=== PATIENT | male | born 1965 | race Caucasian/White ===

== ENCOUNTER 2020-09-03 17:28 | Emergency (ER) | payer OTHER ==
[~2020-09-03 17:28] MED LIST: ACETAMINOPHEN500 M1 PO; ASPIRIN CHEWABL81 MG PO; CYCLOBENZAPRINE10 MG PO; FLEXERIL10 MG PO; IBUPROFEN800 MG PO; MEDROL 4MG DOSEP4 MG PO; MOTRIN600 MG PO; MYLICON80 MG PO; NORCO 5-325 TA1 EACH PO; PERCOCET 5-3251 EACH PO; PROTONIX 40MG T40 MG PO; ROBAXIN750 MG PO
[2020-09-03 19:19] LABS: BASOPHIL 0.7 % (0-2); EOSINOPHIL 3.2 % (0-5); HCT 44.5 % (42.0-52.0); HGB 14.8 g/dl (13.2-18.0); LYMPHOCYTE 18.8 % (15-48); MCH 33.5 pg (25.0-31.0); MCHC 33.3 g/dL (32.0-36.0); MCV 100.7 fL (78.0-100.0); MONOCYTE 8.2 % (0-12); MPV 10.3 fL (6.0-9.5); NEUTROPHIL 68.8 % (41-80); NRBC 0; PLT 241 K/uL (150-400); RBC 4.42 M/uL (4.70-6.00); RDW 13.8 % (11.5-14.0); WBC 9.2 K/uL (4.0-10.5)
[2020-09-03 19:26] LABS: BILIRUBIN 1+ mg/dL (NEGATIVE); BLOOD NEGATIVE Ery/uL (NEGATIVE); CLARITY HAZY (CLEAR); COLOR YELLOW (YELLOW); GLUCOSE (U) NORMAL (NORMAL); LEUKOCYTES TRACE Leu/uL (NEGATIVE); NITRITE NEGATIVE (NEGATIVE); PROTEIN NEGATIVE (NEGATIVE); SPECIFIC GRAVITY 1.025 (1.001-1.030); UROBILINOGEN 0.2 mg/dL (0.2-1.0)
[2020-09-03 19:33] LABS: BACTERIA TRACE; URINARY RBC RARE; URINARY WBC 20-50
[2020-09-03 19:34] LABS: MUCOUS TRACE
[2020-09-03 19:38] LABS: ALBUMIN 3.3 g/dL (3.4-5.0); BILIRUBIN - TOTAL 0.3 mg/dL (0.2-1.0); BUN/CREAT RATIO (CALC) 15.8 RATIO; CREATININE 0.76 mg/dL (0.67-1.17); GLOBULIN (CALCULATION) 4.4 g/dL; TOTAL PROTEIN 7.7 g/dL (6.4-8.2)
[2020-09-15] MEDS ORDERED: ZOLOFT100 MG PO (11:58)
[2020-09-15] MEDS ORDERED: PROTONIX 40MG T40 MG PO (12:14)
== END 2020-09-03 20:50 | disposition home or self-care (01) ==
LOC: FER 17:28
PROVIDERS: Nurse Practitioner Family
DX: R10.84 Generalized abdominal pain (principal); M54.9 Dorsalgia, unspecified; N20.0 Calculus of kidney; K44.9 Diaphragmatic hernia without obstruction or gangrene; K57.90 Diverticulosis of intestine, part unspecified, without perforation or abscess without bleeding; R06.02 Shortness of breath; F32.9 Major depressive disorder, single episode, unspecified; K21.9 Gastro-esophageal reflux disease without esophagitis; F17.210 Nicotine dependence, cigarettes, uncomplicated; Z87.442 Personal history of urinary calculi; Z79.899 Other long term (current) drug therapy
CPT/HCPCS: 36415; 80053; 81001; 82150; 83690; 85025; 87076; 87088; J2270; J2405; J7030

== ENCOUNTER → 2020-09-22 | Day surgery (SDC) | payer OTHER ==
[~2020-09-22] MED LIST changes: +LIPITOR20 MG PO; +ZOLOFT100 MG PO
== END | disposition home or self-care (01) ==
LOC: FAS 07:00
DX: Z12.11 Encounter for screening for malignant neoplasm of colon (principal); D12.3 Benign neoplasm of transverse colon; K31.89 Other diseases of stomach and duodenum; K57.30 Diverticulosis of large intestine without perforation or abscess without bleeding; K44.9 Diaphragmatic hernia without obstruction or gangrene; K31.7 Polyp of stomach and duodenum; F17.210 Nicotine dependence, cigarettes, uncomplicated; F10.10 Alcohol abuse, uncomplicated; F32.9 Major depressive disorder, single episode, unspecified; K21.9 Gastro-esophageal reflux disease without esophagitis; I73.9 Peripheral vascular disease, unspecified; Z80.0 Family history of malignant neoplasm of digestive organs; Z79.899 Other long term (current) drug therapy
CPT/HCPCS: J2250; J2704; J7120

== ENCOUNTER 2020-10-10 12:48 | Emergency (ER) | payer OTHER ==
[~2020-10-10 12:48] MED LIST changes: -LIPITOR20 MG PO
[2020-10-10 15:03] LABS: BASOPHIL 0.5 % (0-2); HCT 37.6 % (42.0-52.0); HGB 12.7 g/dl (13.2-18.0); MCH 32.8 pg (25.0-31.0); MCHC 33.8 g/dL (32.0-36.0); MCV 97.2 fL (78.0-100.0); MONOCYTE 6.6 % (0-12); MPV 10.2 fL (6.0-9.5); NEUTROPHIL 65.5 % (41-80); NRBC 0; PLT 224 K/uL (150-400); RBC 3.87 M/uL (4.70-6.00); RDW 14.4 % (11.5-14.0)
[2020-10-10 15:13] LABS: ALBUMIN 3.5 g/dL (3.4-5.0); BILIRUBIN - TOTAL 0.2 mg/dL (0.2-1.0); BUN/CREAT RATIO (CALC) 10.7 RATIO; CREATININE 0.84 mg/dL (0.67-1.17); GLOBULIN (CALCULATION) 3.9 g/dL; POTASSIUM 3.9 mmol/L (3.5-5.1); TOTAL PROTEIN 7.4 g/dL (6.4-8.2)
[2020-10-10 16:37] LABS: BILIRUBIN NEGATIVE (NEGATIVE); BLOOD NEGATIVE Ery/uL (NEGATIVE); CLARITY CLEAR (CLEAR); COLOR YELLOW (YELLOW); GLUCOSE (U) NORMAL (NORMAL); LEUKOCYTES NEGATIVE Leu/uL (NEGATIVE); NITRITE NEGATIVE (NEGATIVE); PROTEIN NEGATIVE (NEGATIVE); SPECIFIC GRAVITY 1.015 (1.001-1.030); UROBILINOGEN 0.2 mg/dL (0.2-1.0); pH 5.5 (5.0-9.0)
[2020-10-10 16:40] LABS: ECSTASY (MDMA) NEGATIVE (NEGATIVE); MARIJUANA (THC) NEGATIVE (NEGATIVE); METHADONE NEGATIVE (NEGATIVE)
[2020-10-10 16:41] LABS: AMPHETAMINES NEGATIVE (NEGATIVE); BARBITURATES NEGATIVE (NEGATIVE); OPIATES POSITIVE (NEGATIVE); OXYCODONE NEGATIVE (NEGATIVE)
[2020-10-11] MEDS ORDERED: LIPITOR20 MG PO (01:09)
== END 2020-10-11 01:42 | disposition home or self-care (01) ==
LOC: FER 12:48
PROVIDERS: Physician Assistant
DX: I73.9 Peripheral vascular disease, unspecified (principal); R10.9 Unspecified abdominal pain; F17.210 Nicotine dependence, cigarettes, uncomplicated; Z87.39 Personal history of other diseases of the musculoskeletal system and connective tissue
CPT/HCPCS: 36415; 72131; 75635; 80053; 80305; 81003; 83690; 84484; 85025; 93005; G0480; J1170; J2270; J2405; J7030; Q9967

== ENCOUNTER 2020-11-30 13:56 | Emergency (ER) | payer OTHER ==
[~2020-11-30 13:56] MED LIST changes: +LIPITOR20 MG PO
[2020-11-30 14:46] LABS: BASOPHIL 0.6 % (0-2); HCT 42.1 % (42.0-52.0); HGB 14.5 g/dl (13.2-18.0); LYMPHOCYTE 27.3 % (15-48); MCH 32.9 pg (25.0-31.0); MCHC 34.4 g/dL (32.0-36.0); MCV 95.5 fL (78.0-100.0); MONOCYTE 8.2 % (0-12); MPV 9.9 fL (6.0-9.5); NEUTROPHIL 62.5 % (41-80); NRBC 0; PLT 191 K/uL (150-400); RBC 4.41 M/uL (4.70-6.00); RDW 15.7 % (11.5-14.0); WBC 7.2 K/uL (4.0-10.5)
[2020-11-30 14:55] LABS: INR 1.13 (0.9-1.2); PROTHROMBIN TIME 13.8 SECONDS (11.4-13.6); PTT 28.1 SECONDS (22.2-34.7)
[2020-11-30 15:11] LABS: ALBUMIN 3.3 g/dL (3.4-5.0); ALKALINE PHOSHATASE 140 U/L (46-116); ALT 22 U/L (16-63); AST 31 U/L (15-37); BILIRUBIN - TOTAL 0.4 mg/dL (0.2-1.0); BUN 9 mg/dL (7-18); BUN/CREAT RATIO (CALC) 12.9 RATIO; CHLORIDE 100 mmol/L (98-107); CO2 (BICARBONATE) 28 mmol/L (21-32); GLOBULIN (CALCULATION) 4.2 g/dL; GLUCOSE 122 mg/dL (74-106); MAGNESIUM 1.1 mg/dL (1.8-2.4); TOTAL PROTEIN 7.5 g/dL (6.4-8.2)
[2020-11-30 15:19] LABS: LACTIC ACID 1.7 mmol/L (0.4-1.9)
[2020-11-30 15:58] LABS: BILIRUBIN 1+ mg/dL (NEGATIVE); BLOOD NEGATIVE Ery/uL (NEGATIVE); CLARITY CLEAR (CLEAR); COLOR YELLOW (YELLOW); GLUCOSE (U) NORMAL (NORMAL); LEUKOCYTES NEGATIVE Leu/uL (NEGATIVE); NITRITE NEGATIVE (NEGATIVE); PROTEIN TRACE (LOW) mg/dL (NEGATIVE); UROBILINOGEN 0.2 mg/dL (0.2-1.0); pH 7.5 (5.0-9.0)
[2020-11-30 16:03] LABS: MARIJUANA (THC) POSITIVE (NEGATIVE)
[2020-11-30 16:04] LABS: AMPHETAMINES NEGATIVE (NEGATIVE); BARBITURATES NEGATIVE (NEGATIVE); ECSTASY (MDMA) NEGATIVE (NEGATIVE); METHADONE NEGATIVE (NEGATIVE); OPIATES NEGATIVE (NEGATIVE); OXYCODONE NEGATIVE (NEGATIVE)
[2020-11-30 16:18] LABS: SQUAMOUS EPITHELIAL CELLS RARE
== END 2020-11-30 20:11 | disposition other institution (70) ==
LOC: FER 13:56
PROVIDERS: Emergency Medicine
DX: I21.4 Non-ST elevation (NSTEMI) myocardial infarction (principal); R00.0 Tachycardia, unspecified; R03.0 Elevated blood-pressure reading, without diagnosis of hypertension; F17.200 Nicotine dependence, unspecified, uncomplicated; Z87.39 Personal history of other diseases of the musculoskeletal system and connective tissue; Z87.19 Personal history of other diseases of the digestive system
CPT/HCPCS: 36415; 71045; 80053; 80305; 81001; 83605; 83735; 83874; 83880; 84145; 84443; 84484; 85025; 85610; 85730; 87040; 87088; 93005; G0480; J1644

== ENCOUNTER 2021-09-15 12:24 | Inpatient (IN) | payer OTHER ==
[~2021-09-15] VITALS: Ht 167.6 cm; Wt 56.4 kg
[2021-09-15 12:56] LABS: BASOPHIL 0.2 % (0-2); EOSINOPHIL 0.4 % (0-5); HGB 13.3 g/dl (13.2-18.0); LYMPHOCYTE 9.1 % (15-48); MCH 33.8 pg (25.0-31.0); MCHC 33.3 g/dL (32.0-36.0); MCV 101.8 fL (78.0-100.0); MONOCYTE 8.1 % (0-12); MPV 10.3 fL (6.0-9.5); NEUTROPHIL 81.5 % (41-80); NRBC 0; PLT 167 K/uL (150-400); RBC 3.93 M/uL (4.70-6.00); RDW 14.1 % (11.5-14.0); WBC 17.6 K/uL (4.0-10.5)
[2021-09-15 13:10] LABS: ALBUMIN 3.6 g/dL (3.4-5.0); BILIRUBIN - TOTAL 0.2 mg/dL (0.2-1.0); BUN/CREAT RATIO (CALC) 8.5 RATIO; CREATININE 0.82 mg/dL (0.67-1.17); GLOBULIN (CALCULATION) 3.8 g/dL; POTASSIUM 3.2 mmol/L (3.5-5.1); TOTAL PROTEIN 7.4 g/dL (6.4-8.2)
[2021-09-15 13:46] LABS: CORONAVIRUS 2019 SARS-COV-2 NEGATIVE (NEGATIVE); INFLUENZA A NAA NEGATIVE (NEGATIVE)
[2021-09-16] MEDS ORDERED: ASPIRIN EC81 MG PO (13:47)
[2021-09-16] MEDS ORDERED: COREG 6.25MG6.25 MG PO (13:50)
[2021-09-16] MEDS ORDERED: CILOSTAZOL100 MG PO (13:52)
[2021-09-16] MEDS ORDERED: FARXIGA10 MG PO (13:54)
[2021-09-16] MEDS ORDERED: REGLAN5 M1 PO (13:56)
[2021-09-16] MEDS ORDERED: PROTONIX 40MG T40 MG PO (13:56)
[2021-09-16] MEDS ORDERED: ENTRESTO 24 MG1 EACH PO (13:57)
[2021-09-16] MEDS ORDERED: ZOLOFT100 MG PO (13:58)
[2021-09-17 06:28] LABS: BASOPHIL 0.3 % (0-2); EOSINOPHIL 0.2 % (0-5); HCT 37.1 % (42.0-52.0); HGB 12.6 g/dl (13.2-18.0); LYMPHOCYTE 11.9 % (15-48); MCH 33.9 pg (25.0-31.0); MCV 99.7 fL (78.0-100.0); MONOCYTE 7.6 % (0-12); NEUTROPHIL 79.6 % (41-80); NRBC 0; PLT 144 K/uL (150-400); RBC 3.72 M/uL (4.70-6.00); RDW 13.6 % (11.5-14.0); WBC 11.8 K/uL (4.0-10.5)
[2021-09-17 06:51] LABS: BUN/CREAT RATIO (CALC) 12.5 RATIO; CREATININE 0.64 mg/dL (0.67-1.17); POTASSIUM 2.8 mmol/L (3.5-5.1)
[2021-09-18 07:24] LABS: BASOPHIL 0.4 % (0-2); EOSINOPHIL 0.5 % (0-5); HCT 39.9 % (42.0-52.0); HGB 13.3 g/dl (13.2-18.0); LYMPHOCYTE 12.9 % (15-48); MCH 33.8 pg (25.0-31.0); MCHC 33.3 g/dL (32.0-36.0); MCV 101.3 fL (78.0-100.0); MPV 10.7 fL (6.0-9.5); NEUTROPHIL 75.7 % (41-80); NRBC 0; PLT 149 K/uL (150-400); RBC 3.94 M/uL (4.70-6.00); RDW 13.3 % (11.5-14.0)
[2021-09-18 08:03] LABS: BUN/CREAT RATIO (CALC) 11.3 RATIO; CREATININE 0.62 mg/dL (0.67-1.17); MAGNESIUM 1.4 mg/dL (1.8-2.4); POTASSIUM 3.7 mmol/L (3.5-5.1)
--- NOTE | 2021-09-18 12:50 | NUR ---
MET WITH PT. REGARDING ANY NEEDS AND THE REPORT OF ALCHOL USE. MR. SZYMANSKI REPORTED THAT HE RESIDES IN HIS OWN APT. WITH A ROOMMATE. HE WORKS AT THE [employer]. HE IS INDEPENDENT AND DOES NOT USE ANY DME. WHEN ASKED ABOUT HIS ALCOHOL USE. HE STATED THAT HE DOES NOT WISH TO QUIT, BUT MAY CUT BACK. HE STATED THAT HE DOES NOT NEED ANY RESOURCES. HE STATED TO SAVE US BOTH " ALOT OF BREATH" HE KNOWS WHERE THE RESOURCES ARE TO HELP HIM IF HE WISHES TO UTILIZE THEM.
--- NOTE | 2021-09-18 16:08 | NUR ---
PATIENT WAS ASKING ABOUT A WALLET, HE COULD NOT FIND IT. I COULD NOT FIND ANY INFORMTION ABOUT A WALLET BEING ON HIM WHEN ADMITTED. EMS WAS HERE AND EMERITA STATED THAT SHE REMEMBERED GIVING THE WALLET TO THE SECRITY. CALLED SECURITY AND THEY CAME TO THE ROOM AND BROUGHT THE WALLET TO THE PATIENT, HE SIGNED IT OUT AND I WAS THE WITNESS.
[2021-09-18] MEDS ORDERED: PROTONIX 40MG T40 MG PO (18:19)
[2021-09-18] MEDS ORDERED: POTASSIUM CHLO20 ME1 PO (18:19)
[2021-09-18] MEDS ORDERED: ENTRESTO 24 MG1 EACH PO (18:19)
[2021-09-18] MEDS ORDERED: CILOSTAZOL100 MG PO (18:19)
[2021-09-18] MEDS ORDERED: LASIX20 MG PO (18:19)
[2021-09-18] MEDS ORDERED: ZOLOFT100 MG PO (18:19)
[2021-09-18] MEDS ORDERED: MAG-OXIDE 400M400 MG PO (18:19)
[2021-09-18] MEDS ORDERED: PERCOCET 5-3251 EACH PO (18:19)
[2021-09-18] MEDS ORDERED: CEFDINIR300 MG PO (18:23)
[2021-09-18] MEDS ORDERED: AZITHROMYCIN250 MG PO (18:23)
== END 2021-09-18 19:00 | disposition home or self-care (01) | DRG 199 ==
LOC: FER 12:24 → FMS 14:26
PROVIDERS: Emergency Medicine; ADMIT Internal Medicine
PROC: 0W9930Z Drainage of Right Pleural Cavity with Drainage Device, Percutaneous Approach (ICD-10-PCS; principal; 2021-09-15)
DX: J93.0 Spontaneous tension pneumothorax (principal); J18.9 Pneumonia, unspecified organism; J96.01 Acute respiratory failure with hypoxia; I50.21 Acute systolic (congestive) heart failure; J98.11 Atelectasis; F10.10 Alcohol abuse, uncomplicated; E87.6 Hypokalemia; E83.42 Hypomagnesemia; F17.200 Nicotine dependence, unspecified, uncomplicated; Z20.822 Contact with and (suspected) exposure to COVID-19; F41.9 Anxiety disorder, unspecified; Z98.890 Other specified postprocedural states; Z95.810 Presence of automatic (implantable) cardiac defibrillator; Z63.5 Disruption of family by separation and divorce; Z82.49 Family history of ischemic heart disease and other diseases of the circulatory system
CPT/HCPCS: 36415; 71045; 71250; 80048; 80053; 83735; 83880; 85025; 86850; 86900; 86901; 87040; 93005; 94010; 94640; 96365; 96366; 96375; 96376; J0456; J0696; J1170; J1650; J3475; J7030; J7050; U0002

== ENCOUNTER 2022-03-12 09:52 | Emergency (ER) | payer OTHER ==
[~2022-03-12 09:52] MED LIST changes: +ASPIRIN EC81 MG PO; +AZITHROMYCIN250 MG PO; +CEFDINIR300 MG PO; +CILOSTAZOL100 MG PO; +COREG 6.25MG6.25 MG PO; +ENTRESTO 24 MG1 EACH PO; +FARXIGA10 MG PO; +LASIX20 MG PO; +MAG-OXIDE 400M400 MG PO; +NAPROXEN500 MG PO; +POTASSIUM CHLO20 ME1 PO; +REGLAN5 M1 PO
[2022-03-12] MEDS ORDERED: NORCO 5-325 TA1 EACH PO (11:43)
== END 2022-03-12 12:14 | disposition home or self-care (01) ==
LOC: FER 09:52
DX: S52.615A Nondisplaced fracture of left ulna styloid process, initial encounter for closed fracture (principal); S60.222A Contusion of left hand, initial encounter; F17.210 Nicotine dependence, cigarettes, uncomplicated; W22.8XXA Striking against or struck by other objects, initial encounter; Y92.009 Unspecified place in unspecified non-institutional (private) residence as the place of occurrence of the external cause
CPT/HCPCS: 73130

== ENCOUNTER 2022-04-17 22:57 | Emergency (ER) | payer OTHER | END 2022-04-17 23:23 | disposition home or self-care (01) | LOC: FER 22:57 | DX: T18.128A Food in esophagus causing other injury, initial encounter (principal); I50.9 Heart failure, unspecified; F17.200 Nicotine dependence, unspecified, uncomplicated ==